=== PATIENT | female | born 1980 | race Asian ===

== ENCOUNTER 2024-12-31 16:44 | Inpatient (IN) | payer OTHER ==
[2024-12-31 16:56] VITALS: BMI 24.5
[2024-12-31] MEDS: LORazepam 2 MG/ML SDV VIAL IM ONE (17:10)
[2024-12-31 17:20] LABS: ABSOLUTE IMMATURE GRANULOCYTES 0.05 x10^3/uL (0.0-0.031); BASOPHILS # 0.04 x10^3/uL (0.01-0.08); EOSINOPHIL % 2.6 % (0.7-5.8); EOSINOPHILS # 0.27 x10^3/uL (0.04-0.36); MCHC 32.2 g/dl (32.2-35.5); MEAN CELL VOLUME 103.2 fl (79.4-94.8); MEAN PLT VOLUME 9.3 fl (9.4-12.3); MONOCYTE # 0.99 x10^3/uL (0.24-0.86); MONOCYTE % 9.7 % (4.7-12.5); RDW 12.4 % (12.2-17.1)
[2024-12-31] MEDS: SODIUM CHLORIDE 1,000 ML IV STA (17:26)
[2024-12-31 17:30] LABS: INR 0.99 (0.83-1.09); PROTHROMBIN TIME (PATIENT) 10.9 SEC (9.7-13.0)
[2024-12-31] MEDS ORDERED: levETIRAcetam 500 MG/5 ML INJECTION VIAL IVPB ONE (17:32)
[2024-12-31 17:33] LABS: ACTIVATED PTT 35.6 SECONDS (25.2-36.5)
[2024-12-31 17:58] LABS: GLUCOSE,RANDOM 121 mg/dL (74-106); TOT PROT 7.2 g/dl (6.4-8.2)
[2024-12-31 18:00] LABS: CO2 16 mmol/L (21-32)
[2024-12-31 18:01] LABS: ALK PHOS 96 U/L (40-150)
[2024-12-31 18:04] LABS: CREATININE 0.81 mg/dL (0.55-1.3); SGOT/AST 27 U/L (5-34); SGPT/ALT 20 U/L (0-55)
[2024-12-31 18:24] LABS: HCV DIAGNOSTIC IN-HOUSE W/RFLX NON-REACTIVE (NONREACTIVE); HIV INTERPRETATION NEGATIVE (NEGATIVE)
[2024-12-31] MEDS: levETIRAcetam 500 MG/5 ML INJECTION VIAL IVPB ONE (18:26)
[2025-01-01] MEDS: SODIUM CHLORIDE 1,000 ML IV SCH (00:23)
[2025-01-01 00:53] LABS: EPI CELLS 1 /uL (0-25.1); HYALINE CASTS 0 /uL (0-3.1); URINE APPEARANCE CLEAR; URINE BACTERIA 9 /uL (0-1359); URINE BILIRUBIN NEGATIVE (NEGATIVE); URINE COLOR YELLOW; URINE GLUCOSE (UA) NEGATIVE (NEGATIVE); URINE KETONE NEGATIVE (NEGATIVE); URINE LEUK ESTERASE NEGATIVE (NEGATIVE); URINE NITRITE NEGATIVE (NEGATIVE); URINE PROTEIN NEGATIVE (NEGATIVE); URINE RBC 51 /uL (0-23.9); URINE UROBILINOGEN 0.2 mg/dL (0.2-1.0); URINE WBC 2 /uL (0-25.8)
[2025-01-01 01:04] LABS: COCAINE, UR NEGATIVE (NEGATIVE)
[2025-01-01 01:05] LABS: PHENCYCLIDINE,URINE NEGATIVE (NEGATIVE)
[2025-01-01 01:06] LABS: METHADONE, UR NEGATIVE (NEGATIVE); OPIATES, URI NEGATIVE (NEGATIVE); URINE AMPHETAMINES NEGATIVE (NEGATIVE); URINE BARBITURATES NEGATIVE (NEGATIVE); URINE BENZODIAZEPINES NEGATIVE (NEGATIVE)
[2025-01-01 01:36] LABS: BG HCT 37.0 % (32.4-45.2); VENOUS BASE EXCESS -0.7 mmol/L (-2-2); VENOUS O2 SATURATION 97.6 % (70-80); VENOUS PCO2 43.2 mmHg (38-52); VENOUS PH 7.373 (7.310-7.410)
[2025-01-01] MEDS ORDERED: levETIRAcetam 500 MG/5 ML INJECTION VIAL IVPB SCH ×2 (04:00→16:00)
[2025-01-01] MEDS ORDERED: levETIRAcetam 500 MG/5 ML INJECTION VIAL IVPB ONE ×2 (04:06→11:58)
[2025-01-01] MEDS: levETIRAcetam 500 MG/5 ML INJECTION VIAL IVPB ONE (04:19)
[2025-01-01] MEDS ORDERED: ENOXAPARIN NA (PORCINE) 40 MG/0.4 ML DISP.SYRIN SQ ONE ×2 (05:44→11:58)
[2025-01-01 06:54] LABS: GLUCOSE,RANDOM 131.0 mg/dL (74-106)
[2025-01-01 06:56] LABS: CO2 25.0 mmol/L (21-32)
[2025-01-01 07:00] LABS: CREATININE 0.58 mg/dL (0.55-1.3)
[2025-01-01 07:05] LABS: ABSOLUTE IMMATURE GRANULOCYTES 0.06 x10^3/uL (0.0-0.031); BASOPHILS # 0.02 x10^3/uL (0.01-0.08); EOSINOPHIL % 0.0 % (0.7-5.8); EOSINOPHILS # 0.00 x10^3/uL (0.04-0.36); MCHC 33.0 g/dl (32.2-35.5); MEAN CELL VOLUME 102.9 fl (79.4-94.8); MEAN PLT VOLUME 9.4 fl (9.4-12.3); MONOCYTE # 0.31 x10^3/uL (0.24-0.86); MONOCYTE % 3.0 % (4.7-12.5); RDW 12.6 % (12.2-17.1)
[2025-01-01] MEDS ORDERED: DIVALPROEX NA *ER* EXTEND REL 250 MG TABLET.SA PO SCH (10:00)
[2025-01-01] MEDS ORDERED: ONDANSETRON 4 MG/2 ML VIAL ONE (11:58)
[2025-01-01] MEDS: ONDANSETRON 4 MG/2 ML VIAL IVPUSH PRN (11:59)
[2025-01-01] MEDS: levETIRAcetam 500 MG/5 ML INJECTION VIAL IVPB STA (11:59)
[2025-01-01] MEDS ORDERED: VALPROATE SODIUM 500 MG/5 ML VIAL IVPB SCH ×3 (12:00→12:15)
[2025-01-01] MEDS: ENOXAPARIN NA (PORCINE) 40 MG/0.4 ML DISP.SYRIN SQ SCH (12:00)
[2025-01-01] MEDS ORDERED: VALPROATE SODIUM 500 MG/5 ML VIAL ONE (12:35)
[2025-01-01] MEDS: VALPROATE SODIUM INJECTION 500 MG in SODIUM CHLORIDE 100 ML IVPB SCH (12:37)
[2025-01-01] MEDS ORDERED: VALPROATE SODIUM INJECTION 500 MG in SODIUM CHLORIDE 100 ML IVPB SCH (13:00)
[2025-01-01 13:15] LABS: GLUCOSE,RANDOM 114.0 mg/dL (74-106)
[2025-01-01 13:17] LABS: CO2 25.0 mmol/L (21-32)
[2025-01-01 13:21] LABS: CREATININE 0.54 mg/dL (0.55-1.3)
[2025-01-01] MEDS: FOSPHENYTOIN SODIUM 1,000 MG in SODIUM CHLORIDE 100 ML IVPB ONE (17:13)
[2025-01-01 18:43] VITALS: TEMP 98
[2025-01-01] MEDS: levETIRAcetam 500 MG/5 ML INJECTION VIAL IVPB SCH (18:52)
[2025-01-01 20:40] VITALS: BP 122/73
[2025-01-01] MEDS ORDERED: ACETAMINOPHEN 1000 MG/100 ML BAG IVPB PRN (20:46)
[2025-01-01] MEDS: CHLORHEXIDINE GLUCONATE 4% CLEANSER FOR DECOLONIZATION TP SCH (21:32)
[2025-01-01] MEDS ORDERED: MUPIROCIN 2% TOPICAL OINTMENT FOR DECOLONIZATION NS SCH (22:00)
[2025-01-01] MEDS ORDERED: FOSPHENYTOIN SODIUM 100 MG/2 ML VIAL IVPB SCH (22:00)
[2025-01-01 22:36] VITALS: PULSE 83; RESP 19
== END 2025-01-01 22:56 | disposition short-term general hospital (02) | DRG 101 ==
LOC: JER 16:44 → JERBED 20:03 → OBSVTOIN 22:29 → JICU 01-01 16:03
PROVIDERS: ADMIT Internal Medicine; ATTEND Internal Medicine Pulmonary Disease
DX: G40.909 Epilepsy, unspecified, not intractable, without status epilepticus (principal); G93.89 Other specified disorders of brain; G83.84 Todd's paralysis (postepileptic); Z98.890 Other specified postprocedural states; Z85.3 Personal history of malignant neoplasm of breast; Z85.841 Personal history of malignant neoplasm of brain
CPT/HCPCS: 36415; 70450-TC; 71045-TC-FY; 80048; 80053; 80177; 80307; 81003; 82607; 82803; 83036; 83605; 83735; 84100; 84702; 85025; 85610; 85730; 86803; 86850; 86900; 86901; 87086; 87389; 93005; 93010; 99291; G0378